=== PATIENT | male | born 1975 | race American Indian/Alaskan Native ===

== ENCOUNTER 2019-04-04 20:51 | Emergency (ER) | payer OTHER ==
--- NOTE | 2019-04-04 21:07 | Emergency Department Report ---
Blank Doc - Documentation Documentation: This is a 43-year-old male that presents with chest pain and SOB. HX of cardiac stents. This initial assessment/diagnostic orders/clinical plan/treatment(s) is/are subject to change based on patient's health status, clinical progression and re- assessment by fellow clinical providers in the ED. Further treatment and workup at subsequent clinical providers discretion. Patient/guardians urged not to elope from the ED as their condition may be serious if not clinically assessed and managed. Initial orders include: 1- Patient sent to MAIN ED for further evaluation and treatment 2- EKG 3- CXR 4- labs
[2019-04-04 21:24] LABS: Basophils # (Auto) 0.1 K/mm3 (0.0-0.1); Basophils % (Auto) 0.8 % (0.0-1.8); Eosinophils # (Auto) 0.1 K/mm3 (0.0-0.4); Eosinophils % (Auto) 1.5 % (0.0-4.3); Hematocrit 46.7 % (35.5-45.6); Hemoglobin 15.8 gm/dl (11.8-15.2); Lymphocytes # (Auto) 1.7 K/mm3 (1.2-5.4); Lymphocytes % (Auto) 24.9 % (13.4-35.0); Mean Corpuscular HGB Conc 34 % (32-34); Mean Corpuscular Volume 87 fl (84-94); Monocytes # (Auto) 0.4 K/mm3 (0.0-0.8); Monocytes % (Auto) 5.7 % (0.0-7.3); Platelet Count 205 K/mm3 (140-440); Red Blood Count 5.39 M/mm3 (3.65-5.03); Red Cell Distribution Width 12.7 % (13.2-15.2)
[2019-04-04 21:35] LABS: INR 1.07 (0.87-1.13)
[2019-04-04 21:44] LABS: BUN/Creatinine Ratio 11; Blood Urea Nitrogen 16 mg/dL (9-20); Calcium 9.4 mg/dL (8.4-10.2); Hemolysis Index 31
--- NOTE | 2019-04-04 22:09 | XRay Report ---
PROCEDURE: XR CHEST ROUTINE 2V TECHNIQUE: PA and lateral chest radiographs were obtained. HISTORY: Chest Pain COMPARISONS: None. FINDINGS: Heart: Normal. Mediastinum/Vessels: Normal. Lungs/Pleural space: 3 mm nonspecific nodule is noted in the right lower lobe. Left lung and bilater al pleural spaces are clear.. Bony thorax: No acute osseous abnormality. IMPRESSION: 3 mm nodule right lower lobe. A 3-6 month follow-up study is noted.. This document is electronically signed by Lencho Burt MD., April 04 2019 10:07:58 PM ET
--- NOTE | 2019-04-05 00:20 | Emergency Department Report ---
HPI - General Chief Complaint: Dyspnea/Respdistress Time Seen by Provider: 04/04/19 21:05 - HPI HPI: 43-year-old -[place] male presents to the emergency department with a complaint of having some previous palpitations with rapid heart rate and some shortness of breath that occurred about 30 minutes prior to arrival. He took metoprolol 25 mg about 15 minutes later and currently the patient says he is asymptomatic. He has a past medical history of coronary artery disease with HI with one stent and hypertension. His manager practice is Dr. Gayle. The patient had a negative stress test and what sounds like a V/Q scan or some type of nuclear scan a few weeks ago at his manager practice's office and everything was negative. The patient has the metoprolol from some previous palpitations that he had in the past but he was taken off of it. He denies any chest pain, fever, nausea, vomiting or diaphoresis. No recent travel or sick contacts at home. He denies any tobacco or illicit drug use. ED Past Medical Hx - Past Medical History Previous Medical History?: Yes Hx Hypertension: Yes Hx Heart Attack/AMI: Yes - Surgical History Past Surgical History?: Yes Hx Coronary Stent: Yes (x1) Additional Surgical History: stress test-03/2019, Thallium 03/2016 - Social History Smoking Status: Never Smoker Substance Use Type: None ED Review of Systems ROS: Stated complaint: DIFF BREATHING Other details as noted in HPI Comment: All other systems reviewed and negative Constitutional: denies: chills, fever Eyes: denies: eye pain, vision change ENT: denies: ear pain, throat pain Respiratory: shortness of breath (resolved). denies: cough Cardiovascular: palpitations. denies: chest pain Gastrointestinal: denies: abdominal pain, vomiting Genitourinary: denies: dysuria, discharge Musculoskeletal: denies: back pain, arthralgia Skin: denies: rash, lesions Neurological: denies: headache, weakness Physical Exam - Physical Exam Vital Signs: Vital Signs 04/04/19 21:15 Temperature 98 F Pulse Rate 94 H Respiratory 18 Rate Blood Pressure 132/84 [Right] O2 Sat by Pulse 97 Oximetry Physical Exam: GENERAL: The patient is well-developed well-nourished. HENT: Normocephalic. Atraumatic. Patient has moist mucous membranes. EYES: Extraocular motions are intact. NECK: Supple. Trachea is midline. CHEST/LUNGS: Clear to auscultation. There is no respiratory distress noted. HEART/CARDIOVASCULAR: Regular. There is no tachycardia. There is no murmur. ABDOMEN: Abdomen is soft, nontender. Patient has normal bowel sounds. There is no abdominal distention. SKIN: Skin is warm and dry. NEURO: The patient is awake, alert, and oriented. The patient is cooperative. The patient has no focal neurologic deficits. The patient has normal speech. MUSCULOSKELETAL: There is no tenderness or deformity. There is no limitation range of motion. There is no evidence of acute injury. ED Course Vital Signs 04/04/19 21:15 Temperature 98 F Pulse Rate 94 H Respiratory 18 Rate Blood Pressure 132/84 [Right] O2 Sat by Pulse 97 Oximetry ED Medical Decision Making - Lab Data Result diagrams: 04/04/19 21:09 04/04/19 21:09 - EKG Data -: EKG Interpreted by Me EKG shows normal: sinus rhythm, axis, intervals, QRS complexes, ST-T waves (T inversions to the inferior leads) Rate: tachycardia (104 bpm) - EKG Data When compared to previous EKG there are: previous EKG unavailable Interpretation: other (mild sinus tachycardia, T-wave inversions in the inferior leads. No ST elevation HI) - Radiology Data Radiology results: image reviewed interpreted by me: Chest x-ray does not show any acute process. There are no pleural effusions, obvious pneumonia and there is no pneumothorax. - Medical Decision Making This patient presents to the emergency department after he had the feelings of some palpitations and was found to have a fast heart rate, along with some shortness of breath. However the patient is currently asymptomatic at the time of my evaluation. His labs have been unremarkable including a CBC, BMP, troponin. EKG does not show any signs of ST elevation HI, or dysrhythmia. Chest x-ray did not show any pleural effusions, pneumonia, pneumothorax, focal consolidation, or any other acute process. His heart and lungs sounds are normal to auscultation. Vital signs stable throughout his ED course. There has been no return of his symptoms. The patient says that he had a recent negative stress test and recently had what sounds like a VQ scan that was negative for any blood clots. The patient says he is feeling normal, back at his baseline, and does not want any further evaluation done at this time. He has good follow- up with cardiology. He will return to the ER with any worsening of his symptoms or any acute distress. - Differential Diagnosis dysrhythmia, hyperthyroidism, HI Critical Care Time: No Critical care attestation.: If time is entered above; I have spent that time in minutes in the direct care o f this critically ill patient, excluding procedure time. ED Disposition Clinical Impression: Palpitations Disposition: - TO HOME OR SELFCARE Is pt being admited?: No Condition: Stable Instructions: Palpitations (ED) Additional Instructions: Please follow-up with your manager practice in the next 1-2 days. Return to the emergency department with any return of your palpitations, shortness of breath, development of chest pain, worsening of your symptoms, or with any acute distress. Referrals: [facility], Your [Other] - [facility] Time of Disposition: 00:20
[2019-04-05 00:29] VITALS: BP 121/79
== END 2019-04-05 00:28 | disposition home or self-care (01) ==
LOC: ED 20:51
DX: R00.2 Palpitations (principal); I10 Essential (primary) hypertension; I25.2 Old myocardial infarction; Z95.5 Presence of coronary angioplasty implant and graft
CPT/HCPCS: 36415; 71046; 80048; 84484; 85025; 85610; 85730; 93005; 93010